=== PATIENT | female | born 1935 | race Caucasian/White ===

== ENCOUNTER → 2024-02-24 14:11 | Outpatient (REF) | payer MEDICARE, BC, SELFPAY | LOC: RAD 14:11 | PROVIDERS: ATTENDING PHYSICIAN Surgery Vascular Surgery; FAMILY PHYSICIAN Internal Medicine | DX: I65.22 Occlusion and stenosis of left carotid artery (principal) | CPT/HCPCS: 93880 ==

== ENCOUNTER → 2024-03-09 11:20 | Outpatient (REF) | payer MEDICARE, BC, SELFPAY ==
[2024-03-09 12:40] LABS: Blood Urea Nitrogen 20 mg/dl (7-17); Calcium 9.9 mg/dl (8.4-10.2); Carbon Dioxide 28 mmol/L (22-30); Chloride 104 mmol/L (98-107); Glucose 92 mg/dl (70-99); Potassium 4.8 mmol/L (3.5-5.1); Sodium 139 mmol/L (135-145); eGFR > 60.00
== END ==
LOC: REG 11:20
PROVIDERS: ATTENDING PHYSICIAN Surgery Vascular Surgery; FAMILY PHYSICIAN Internal Medicine
DX: I65.29 Occlusion and stenosis of unspecified carotid artery (principal)
CPT/HCPCS: 36415; 80048

== ENCOUNTER → 2024-03-17 14:15 | Outpatient (REF) | payer MEDICARE, BC, SELFPAY | LOC: RAD 14:15 | PROVIDERS: ATTENDING PHYSICIAN Surgery Vascular Surgery; FAMILY PHYSICIAN Internal Medicine | DX: I65.29 Occlusion and stenosis of unspecified carotid artery (principal) | CPT/HCPCS: 70496; 70498; Q9967 ==

== ENCOUNTER 2024-05-08 08:59 | Inpatient (IN) | payer MEDICARE, BC, SELFPAY ==
[2024-05-04 10:43] LABS: % Eosinophils 1.8 % (0-6); % Immature Granulocytes 0.4 % (0-0.5); % Lymphocytes 13.4 % (20.5-51.1); % Monocytes 8.6 % (1.7-9.3); % Neutrophils 74.8 % (42.2-75.2); Absolute Basophils 0.1 10^3/uL (0-0.2); Absolute Eosinophils 0.1 10^3/uL (0-0.7); Absolute Lymphocytes 0.9 10^3/uL (1.2-3.4); Absolute Monocytes 0.6 10^3/uL (0.1-0.6); Hematocrit 40.2 % (37.0-47.0); Hemoglobin 12.9 g/dL (12.0-16.0); Mean Corp Hgb Conc. 32.1 g/dL (33.0-37.0); Mean Corpuscular Hgb 28.4 pg (27.0-31.0); Mean Corpuscular Volume 88.5 fL (81.0-99.0); Mean Platelet Volume 9.4 fL (7.4-10.4); Nucleated Red Blood Cells % 0 %; Platelet Count 263 10^3/uL (130-400); Red Blood Cell Count 4.54 10^6/uL (4.20-5.40); Red Cell Dist. Width 13.4 % (11.5-14.5); White Blood Cell Count 6.7 10^3/uL (4.8-10.8)
[2024-05-04 10:50] LABS: APTT 32.2 Sec (23.4-35.0); INR 0.99; PT 12.9 Sec (11.4-14.6)
[2024-05-04 11:23] LABS: Blood Urea Nitrogen 15 mg/dl (7-17); Calcium 9.9 mg/dl (8.4-10.2); Carbon Dioxide 30 mmol/L (22-30); Chloride 102 mmol/L (98-107); Glucose 95 mg/dl (70-99); Potassium 4.7 mmol/L (3.5-5.1); Sodium 140 mmol/L (135-145); eGFR > 60.00
[2024-05-08 09:19] VITALS: BMI 19.2
[2024-05-08 09:20] VITALS: BP 188/77
--- NOTE | 2024-05-08 09:28 | W.SUR.PREOP ---
Pre-Operative Surgical Note
-
I have examined this patient prior to the performance of the scheduled procedure.
The patient's condition is unchanged from the time of the current History and
Physical and the patient is able to undergo the scheduled procedure.
[2024-05-08] MEDS: NSS 500 IV (09:50)
[2024-05-08 09:58] VITALS: BMI 19.2
[2024-05-08] MEDS: BACTROBAN NASAL 1 GRAM NASAL (10:06)
[2024-05-08] MEDS: PERIDEX 0.12% ORAL RINSE 15 ML PO (10:06)
--- NOTE | 2024-05-08 11:18 | PTCARENOTE ---
Dr Gale at pt bedside speaking to pt and pt's sister.
[2024-05-08 12:51] LABS: ACT-LR - POC 261 Seconds (116-155)
[2024-05-08 13:32] LABS: ACT-LR - POC 297 Seconds (116-155)
--- NOTE | 2024-05-08 13:54 | CON.INTV ---
Consultation
Consultation Request
Date/Time Consultation Requested: 05/08/2024 - 1330
Date/Time Consultation Performed: 05/08/2024 - 1351
Requesting Provider: TOÑO Cifuentes
Performing Provider: Alcides Portillo MD
Reason for Consultation: s/p R-CEA
Medical History
-
Chief Complaint: Elective right CEA
History of Present Illness:
89-year-old female non-smoker with a past medical history of bilateral internal carotid artery stenosis, hypertension, vitamin D deficiency and cataracts who presents with elective right CEA. Patient known to vascular surgery service with last
office visit on 04/08/[address] Gale. Patient has known bilateral internal carotid artery stenosis stemming from CTA head/neck from November 2022. Repeat CTA head/neck on 03/17/2024 shows hemodynamically significant right distal common carotid
artery/proximal ICA stenosis with approximately 80-85% narrowing, as well as proximal left ICA stenosis of approximately 50%. Surgical revascularization was discussed at her office visit with Dr. Gale, and the risks and benefits were reviewed in
detail. Patient agreed to procedure. Today she underwent right sided carotid endarterectomy with no complications and was transferred to the ICU for further care. Critical care services consulted for additional management/recommendations.
When I saw the patient she was resting in bed in no acute distress. Heart rate 77, BP via A-line 195/83, BP via NIBP: 171/76. She is saturating 94% on room air. She says she takes lisinopril 5 mg at night. She did take her last dose last night.
She currently denies anxiety, pain, GARCIA, CP, SOB, abdominal pain, nausea, fevers or chills.
PMHx: Bilateral internal carotid artery stenosis, hypertension, vitamin D deficiency, cataracts
PSHx: Sinus surgery, tonsillectomy, cataract surgery, left�CEA (2022)
Past Medical History
Past Medical History: Other (Above as per HPI)
Past Surgical History: Other (Above as per HPI)
Social History
Tobacco: Non-smoker
Alcohol: None
Drug: None
Family History
Family History: Diabetes (This mother + sibling) and Hypertension (Sibling)
Allergies / Home Medications
Allergies
Allergy/AdvReac Type Severity Reaction Status Date / Time
No Known Allergies Allergy Verified 05/08/24 09:20
Home Medications
�Medication �Instructions �Recorded �Confirmed �Last Taken �Type
aspirin 81 mg tablet,delayed 81 mg PO DAILY Blood clot 12/10/22 05/08/24 05/08/24 06:30 History
release prevention/tx
elderberry fruit 50 mg/5 mL oral 50 mg PO DAILY Supplement 12/10/22 04/29/24 12/16/22 07:00 History
syrup
atorvastatin 10 mg tablet (Lipitor) 10 mg PO DAILY 04/29/24 05/08/24 05/07/24 07:00 History
lisinopril 5 mg tablet 5 mg PO HS 04/29/24 05/08/24 05/07/24 20:00 History
Elderberry 575mg/5ml Syrup 1 tsp PO DAILY 05/08/24 05/08/24 3 Weeks Ago History
~04/17/24
cholecalciferol (vitamin D3) 50 50 mcg PO DAILY 05/08/24 05/08/24 05/07/24 07:00 History
mcg (2,000 unit) capsule (Vitamin
D3)
cyanocobalamin (vitamin B-12) 1,000 mcg PO DAILY 05/08/24 05/08/24 05/07/24 07:00 History
1,000 mcg tablet (Vitamin B-12)
Review of Systems
-
History Source: Patient
All other systems: Negative unless noted (12 point ROS performed and is negative unless mentioned above.)
Vitals / Labs / Diagnostic Testing
Vital Signs
Temp Pulse Resp BP Pulse Ox
98.1 F 79 20 188/77 98
05/08/24 09:20 05/08/24 09:20 05/08/24 09:20 05/08/24 09:20 05/08/24 09:20
Microbiology
05/04/24 10:17 Nose MRSA Screen - Final
No Methicillin Resistant Staphylococcus aureus isolated.
Diagnostic Testing:
Physical Exam
-
HEENT: Anicteric and Other (Vertical incision scar seen over right anterior neck)
Cardiovascular: S1/S2 and Peripheral Edema (negative)
Respiratory: Wheeze (negative), Rales (negative), Rhonchi (negative) and Non-Labored Respirations
GI: Soft, Non Distended, Non Tender and Normal Bowel Sounds
Neurology: AO x 3 and Tremors (negative)
Skin: Warm and Dry
General: Respiratory Distress (negative), Comfortable, Fever (negative), Chills (negative) and Sweats (negative)
Assessment
-
Assessment: 89-year-old female non-smoker with a PMHx of bilateral internal carotid artery stenosis, hypertension, vitamin D deficiency and cataracts who presents with elective right CEA. Patient known to vascular surgery service with last office
visit on 04/08/[address] Gale. Patient has known bilateral internal carotid artery stenosis stemming from CTA head/neck from November 2022. Repeat CTA head/neck on 03/17/2024 shows hemodynamically significant right distal common carotid
artery/proximal ICA stenosis with approximately 80-85% narrowing, as well as proximal left ICA stenosis of approximately 50%. Surgical revascularization was discussed at her office visit with Dr. Gale, and the risks and benefits were reviewed in
detail. Patient agreed to procedure. On 05/08/2023 she underwent right sided carotid endarterectomy with no complications and was transferred to the ICU for further care. Critical care services consulted for additional management/recommendations.
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
Impression:
#Right internal carotid artery high-grade stenosis s/p carotid endarterectomy (POD #0)
#Right upper lobe 5 mm groundglass opacity (stable since November 2022)
#Anemia
#Hypertension
Plan:
Postoperative surgical intensive care unit monitoring
Supplemental oxygen as needed to maintain SpO2 >90-94%
prn nebulized bronchodilators
Incentive spirometry encouraged 10x per hour for at least 4 hrs a day
Aspiration precautions
Pain control
Neuro and vascular checks per protocol
Maintain MAP>70-100 --> cardene gtt being started given she is hypertensive with SBP>190
Replete electrolytes with K>4, Mg>2
Maintain euglycemia with goal BG 140-180
Vascular surgery following-correspondence and operative notes reviewed
Transfuse blood products as needed to keep Hb>7g/dL, and plt>50k (given post-operative status)
DVT prophylaxis
Early nutrition
Early mobilization
Recommend continued monitoring of RUL groundglass opacity until stable for 5 years. Considering she recently had CTA head and neck on 03/17/2024, recommend obtaining dedicated CT chest to assess remainder of lung stafford for additional nodules. This
can be done on an outpatient basis. I will arrange for outpatient follow-up with me.
Critical care statement: A total of 44 minutes of critical care time was provided for this patient today. This includes management of unstable vital signs, evaluation of the patient at bedside, reviewing the patient's pertinent medical records
including radiographs, microbiology, laboratory evaluations, and discussion with primary team, consultants, pharmacy, nutrition, physical therapy, case management, charge nurse, critical care nursing, and respiratory therapy.
[2024-05-08 14:20] VITALS: BP 134/67; BP 188/77
--- NOTE | 2024-05-08 14:27 | W.SUR.POST ---
Surgical Immediate Post Op
Note
Pre Op Diagnosis: Carotid Stenosis
Post Op Diagnosis: Carotid Stenosis
Procedure Performed: RIGHT Carotid Endarterectomy
Primary Surgeon: Erik Gale MD
Secondary Surgeons: Tonio Green MD, PhD
Anesthesia: Per Anesthesia
Estimated Blood Loss: 20 cc
Fluids: Per Anesthesia
Drains/Shunts: None
Specimens/Cultures: None
Doppler/Duplex/Angio (Y/N): None
Complications: None
Operative Findings: Right carotid cutdown, endarterectomy with extensive hard and soft plaque, patch repair, closure. Neuro intact post-procedure.
--- NOTE | 2024-05-08 14:29 | OR.RPT ---
Operative Report
Operative Report
Date of Operation: 05/08/2024
Pre Op Diagnosis: High-grade stenosis of the right internal carotid artery, asymptomatic
Post Op Diagnosis: High-grade stenosis of the right internal carotid artery, asymptomatic
Procedure: RIGHT carotid endarterectomy with patch angioplasty using bovine pericardium
Surgeon: Erik Gale III, MD
Towel Distributor: Tonio Green MD PhD PGY-6
Anesthesia: General
Complications: None
History and Indications for Procedure: 89-year-old female with asymptomatic high-grade right carotid artery stenosis
Procedure in Detail: Blanca Rodriguez was correctly identified and placed supine on the operating table. After adequate induction of anesthesia the right neck was positioned, prepped and draped in the usual sterile fashion. Preoperative antibiotics were
administered. A timeout procedure was performed with the nursing and anesthesia staff confirming the patients identity as well as the nature and laterality of the procedure.
The carotid bifurcation was marked with ultrasound at the beginning of the case. The incision was planned accordingly. An incision was made along the anterior border of the right sternocleidomastoid muscle. Electrocautery was used to divide the
subcutaneous tissue and platysma. The carotid sheath was entered with sharp dissection. The internal jugular vein was retracted laterally. The vagus nerve was identified and protected throughout the case. The common carotid artery was identified at
the base of this incision and carefully encircled with a vessel loop. The patient was systemically heparinized. The dissection was continued distally towards the carotid bifurcation. The facial vein was skeletonized, ligated and divided between ties
and clips. The proximal external carotid artery was encircled with a vessel loop. The distal internal carotid artery was encircled with a vessel loop at a soft spot on the artery beyond the plaque. The hypoglossal nerve was identified and protected.
The internal vessel loop was secured followed by the common and external. An arteriotomy was made on the distal common carotid artery with an 11-blade. This was extended proximally and distally with Dick scissors. The arteriotomy was extended
distally through the plaque to an area of normal appearing internal carotid artery. The distal vessel loop was replaced with a short tip hockey-stick type vascular clamp. An endarterectomy was performed with a [place] elevator in the standard
fashion. The proximal extent of the plaque was transected with scissors. The distal end of the plaque in the internal carotid artery feathered very nicely with no distal intimal flap identified. The plaque extending into the external carotid artery
was everted. Once the plaque was fully removed the endarterectomy plane was irrigated with heparinized saline and any loose fronds of tissue were removed. A pre-cut piece of bovine pericardium was sewn in place using a running 6-0 Prolene suture.
Prior to the completion of the patch the common carotid was allowed to forward bleed and the external was allowed to back bleed. The area under the patch was irrigated with heparinized saline to remove any potential thrombus or debris. The
anastomosis was completed.
The external vessel loop was released first, followed by the common and then the internal. There was an excellent pulse in the distal internal carotid artery. An excellent quality Doppler signal in the distal internal carotid artery was also
confirmed. The patch suture line was closely inspected for hemostasis and was achieved. Protamine was administered. Hemostasis was achieved in the wound bed. The wound was irrigated with saline solution.
The wound was then closed in layers. Sterile dressings were applied. The patient awoke from anesthesia with no immediate neuro deficits and was taken to the PACU in stable condition.
Attestation: I was present and responsible for the entire procedure
Signed:
Erik Gale III, MD
[facility] V[facility] Surgery
[phone] (cell)
[2024-05-08 14:30] VITALS: BP 142/63
[2024-05-08 14:35] VITALS: BP 139/59
[2024-05-08] MEDS: NSS 1000 IV (14:46)
[2024-05-08 14:53] LABS: Hematocrit 32.9 % (37.0-47.0); Hemoglobin 10.9 g/dL (12.0-16.0); Mean Corp Hgb Conc. 33.1 g/dL (33.0-37.0); Mean Corpuscular Hgb 29.4 pg (27.0-31.0); Mean Corpuscular Volume 88.7 fL (81.0-99.0); Red Blood Cell Count 3.71 10^6/uL (4.20-5.40); Red Cell Dist. Width 13.1 % (11.5-14.5); White Blood Cell Count 6.9 10^3/uL (4.8-10.8)
[2024-05-08 14:57] LABS: Blood Urea Nitrogen 19 mg/dl (7-17); Calcium 8.4 mg/dl (8.4-10.2); Carbon Dioxide 26 mmol/L (22-30); Chloride 108 mmol/L (98-107); Estimated Creatinine Clearance 52 ml/min; Glucose 104 mg/dl (70-99); Potassium 4.5 mmol/L (3.5-5.1); Sodium 141 mmol/L (135-145); eGFR > 60.00
[2024-05-08 15:00] VITALS: BP 138/60
[2024-05-08 15:32] LABS: Mean Platelet Volume 9.7 fL (7.4-10.4); Platelet Count 209 10^3/uL (130-400)
--- NOTE | 2024-05-08 15:38 | TRANSFER ---
Patient transferred to ICU, phone and bedside report to Laurie. Patient awake and alert, VSS. Neuro checks wnl on arrival to ICU. Arian Robert RN BSN.
[2024-05-08 15:42] VITALS: BMI 19.0
[2024-05-08] MEDS: CARDENE 200 IV (15:52)
[2024-05-08] MEDS: ROXICODONE 5 MG PO (16:24)
--- NOTE | 2024-05-08 16:40 | PTCARENOTE ---
Pt admitted to ICU bed 3362 from PACU at 1530. Pt AAOx3. Neuro checks WNL. PERRL. Right neck incision C/D/I. BP elevated on arrival. SBP 170s-190 via right radial a-line. Nicardipine started per protocol. PRN Oxycodone give x 1 for right
neck pain.
--- NOTE | 2024-05-08 19:50 | PTCARENOTE ---
Pt Aox3, VERA, pupils equal and reactive, VSS, NSR on monitor, [place] in place. no edema. C/o tenderness at right surgical site, declined pain medication at this time. Right neck incision is ecchymotic, edges approx with surgical glue, soft, and
tender. NS @80ml/hr infusing per order. Bedrest until AM, [place] in place. Pt offers no complaints at this time, will continue with plan of care.
[2024-05-08] MEDS: HEPARIN 5000 UNITS SC (20:00)
[2024-05-08] MEDS: ZESTRIL 5 MG PO (22:36)
[2024-05-09] VITALS (8 sets, daily range): BP systolic 119–180; BP diastolic 64–79; BMI 19.3
--- NOTE | 2024-05-09 | PTCARENOTE ---
Pt assessment unchanged, VSS, NSR on monitor with PVCs. Right neck incision remains CDI. Normal Saline infusing at 80ml/hr.
[2024-05-09] MEDS: NSS 1000 IV (02:27)
[2024-05-09 05:00] LABS: Blood Urea Nitrogen 16 mg/dl (7-17); Carbon Dioxide 22 mmol/L (22-30); Chloride 109 mmol/L (98-107); Estimated Creatinine Clearance 52 ml/min; Glucose 105 mg/dl (70-99); Magnesium 2.1 mg/dl (1.6-2.3); Potassium 4.7 mmol/L (3.5-5.1); Sodium 140 mmol/L (135-145); eGFR > 60.00
[2024-05-09 05:02] LABS: INR 1.11; PT 14.1 Sec (11.4-14.6)
[2024-05-09 05:03] LABS: Hemoglobin 11.5 g/dL (12.0-16.0); Mean Corp Hgb Conc. 33.8 g/dL (33.0-37.0); Mean Corpuscular Volume 85.6 fL (81.0-99.0); Mean Platelet Volume 9.9 fL (7.4-10.4); Platelet Count 253 10^3/uL (130-400); Red Blood Cell Count 3.97 10^6/uL (4.20-5.40); Red Cell Dist. Width 13.2 % (11.5-14.5); White Blood Cell Count 10.3 10^3/uL (4.8-10.8)
[2024-05-09 05:13] LABS: APTT 31.6 Sec (23.4-35.0)
--- NOTE | 2024-05-09 06:13 | PTCARENOTE ---
Systolic BP >200 on Sharon, pt denied pain, Cardene gtt restarted at 2.5mg. Pt then C/o pressure in bladder, upon bladder scan she was retaining 720ml, straight cath for 900ml. Surgical incision remains intact, soft, with local ecchymosis.
--- NOTE | 2024-05-09 07:43 | W.PN.VS ---
Today's Communication / Plan
-
wean cardene and if bp stable hopeful for discharge
Assessment/Plan
-
s/p cea
- wean cardene
d/c mary
ambulate
homeful for discharge later today
Subjective Data
-
Date of Service: May 09, 2024
doing well
no complaints
no pain
Objective Data
-
Vital Signs
Temp Pulse Resp BP Pulse Ox
97.8 F 75 12 180/79 97
05/09/24 04:30 05/09/24 06:45 05/09/24 06:45 05/09/24 04:12 05/09/24 06:45
Intake and Output
05/08/24 05/09/24 05/10/24
06:59 06:59 06:59
Intake Total 1376.5 / 1469.0 92.5 / 92.5
Output Total 1500 / 1500
Balance -123.5 / -31.0 92.5 / 92.5
Intake:
Oral fluids
IV fluids (Total) 1367.5 / 1460.0 92.5 / 92.5
Cardene 37.5 / 50.0 12.5 / 12.5
NS 1225 / 1305 80 / 80
Nss 1,000 ml @ 80 mls/hr IV . 105 / 105
[id number] MIGUELINA Rx#:[id number]
Output:
Urine, Voided 600 / 600
Straight cath output 900 / 900
Lab Results
05/09/24 04:09
05/09/24 04:09
Calcium 9.0 mg/dl (8.4-10.2) 05/09/24 04:09
Magnesium 2.1 mg/dl (1.6-2.3) 05/09/24 04:09
Physical Exam
-
rrr
ctab
inc c/d/i
no hematoma
neuro intact
equal strength bilat upper and lower extremities
[2024-05-09] MEDS: ASPIR LOW (ENTERIC COATED) 81 MG PO (08:10)
[2024-05-09] MEDS: VITAMIN D3 (cholecalciferol) 50 MCG PO (08:10)
[2024-05-09] MEDS: HEPARIN 5000 UNITS SC (08:10)
[2024-05-09] MEDS: LIPITOR 10 MG PO (08:10)
[2024-05-09] MEDS: VITAMIN B-12 1000 MCG PO (08:10)
--- NOTE | 2024-05-09 08:50 | W.PN.INTV ---
Today's Communication / Plan
Recommendations
Pain control
Up OOB as tolerated
Outpatient follow-up recommended with vascular surgery
Outpatient follow-up with me regarding her RUL GGO � I personally discussed this with the patient prior to her being discharged home.
Patient being prepared for discharge home. Drink Mixer/Pulmonary service will now sign off. Please reconsult if there are any additional questions/concerns, or if patient's respiratory status deteriorates.
Assessment
-
Assessment: 89-year-old female non-smoker with a PMHx of bilateral internal carotid artery stenosis, hypertension, vitamin D deficiency and cataracts who presents with elective right CEA. Patient known to vascular surgery service with last office
visit on 04/08/[address] Gale. Patient has known bilateral internal carotid artery stenosis stemming from CTA head/neck from November 2022. Repeat CTA head/neck on 03/17/2024 shows hemodynamically significant right distal common carotid
artery/proximal ICA stenosis with approximately 80-85% narrowing, as well as proximal left ICA stenosis of approximately 50%. Surgical revascularization was discussed at her office visit with Dr. Gale, and the risks and benefits were reviewed in
detail. Patient agreed to procedure. On 05/08/2023 she underwent right sided carotid endarterectomy with no complications and was transferred to the ICU for further care. Critical care services consulted for additional management/recommendations.
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
Impression:
#Right internal carotid artery high-grade stenosis s/p carotid endarterectomy (POD #1)
#Right upper lobe 5 mm groundglass opacity (stable since November 2022)
#Anemia
#Hypertension
Plan:
Postoperative surgical intensive care unit monitoring
Maintain SpO2 >90-94%
prn nebulized bronchodilators
Incentive spirometry encouraged 10x per hour for at least 4 hrs a day
Aspiration precautions
Pain control
Neuro and vascular checks per protocol
Maintain MAP>70-100 - now off cardene gtt
Replete electrolytes with K>4, Mg>2
Maintain euglycemia with goal BG 140-180
Vascular surgery following-correspondence and operative notes reviewed
Transfuse blood products as needed to keep Hb>7g/dL, and plt>50k (given post-operative status)
DVT prophylaxis
Early nutrition
Early mobilization
Recommend continued monitoring of RUL groundglass opacity until stable for 5 years. Considering she recently had CTA head and neck on 03/17/2024, recommend obtaining dedicated CT chest to assess remainder of lung stafford for additional nodules. This
can be done on an outpatient basis. I will arrange for outpatient follow-up with me.
Patient being prepared for discharge home. Drink Mixer/Pulmonary service will now sign off. Thank you for allowing us to be involved in the care of this patient. Please reconsult if there are any additional questions/concerns, or if patient's
respiratory status deteriorates.
Total time spent today was 40 minutes for this encounter. Time includes reviewing laboratory test/imaging results, reviewing pertinent medical records, obtaining and reviewing medical history, performing an appropriate exam, ordering medications,
tests and procedures. Time also includes documentation of this encounter, coordinating patient care and communicating with other healthcare professionals. Total time does not include separately billed tests performed on this date of service.
Subjective Dataa
Subjective Data
Date of Service:
Date of Service: May 09, 2024
Chief Complaint: Drink Mixer Follow Up
Subjective:
Seen and evaluated today at bedside. Slight discomfort over the right side of the neck, otherwise no SOB, CP, GARCIA, abdominal pain, fevers or chills. Currently saturating 96% on room air, BP 167/74, heart rate 92.
Review of Systems
General: Other (Negative unless mentioned above)
Objective Data
Data Reviewed
Vital Signs / I&O / Oxygen:
Vital Signs
Temp Pulse Resp BP Pulse Ox
97.8 F 96 23 137/71 97
05/09/24 04:30 05/09/24 10:30 05/09/24 10:30 05/09/24 10:00 05/09/24 09:17
Intake and Output
05/08/24 05/09/24 05/10/24
06:59 06:59 06:59
Intake Total 1376.5 / 1469.0 185.0 / 185.0
Output Total 1500 / 1500
Balance -123.5 / -31.0 185.0 / 185.0
SaO2 97
Physical Exam
General: Respiratory Distress (negative) and Comfortable
HEENT: Anicteric and Other (Vertical incision scar seen over right anterior neck)
Cardiovascular: S1-S2 and Peripheral Edema (negative)
Respiratory: Wheeze (negative), Crackles (negative), Rhonchi (negative) and Non-Labored Respirations
GI: Soft, Non Distended, Non Tender and Normal Bowel Sounds
Neurology: AO x 3 and Tremors (negative)
Skin: Warm, Dry and Jaundice (negative)
Labs/Micro/Reports
Lab Data
05/09/24 04:09
05/09/24 04:09
Laboratory Results
05/09/24
04:09
PT 14.1
INR 1.11
APTT 31.6
--- NOTE | 2024-05-09 10:42 | PTCARENOTE ---
Neuro checks WNL. A line d/c'd. BP stable off Cardene gtt. Pt OOB in chair. Steady gait. Self care in the bathroom. Incision C/D/I.
--- NOTE | 2024-05-09 11:34 | CM ---
CM reviewed medical records. CM met with patient in room. Patient lives independently with her friend.. Patient does not have a history of VN, SNF or DME. Patient is active with her PCP. Patient confirmed medication coverage.
PLAN: Home no needs.
--- NOTE | 2024-05-09 13:37 | PTCARENOTE ---
Cardene off at 0815. Last BP 158/75. Neuro checks WNL. Tolerating diet. Ambulating with steady gait. - Dr Jennings notified. Pt okayed for discharge.
--- NOTE | 2024-05-09 15:46 | PTCARENOTE ---
Pt discharged to home with family. IV and grinder hand d/c'd. Reviewed all discharge instruction, including f/u visits, meds and when to call MD.
== END 2024-05-09 15:27 | disposition home or self-care (01) | DRG 39 ==
LOC: ICU 08:59
PROVIDERS: Nurse Practitioner; ADMITTING PHYSICIAN Surgery Vascular Surgery; CONSULT PHYSICIAN Internal Medicine Critical Care Medicine; FAMILY PHYSICIAN Internal Medicine
PROC: 03UK0KZ Supplement Right Internal Carotid Artery with Nonautologous Tissue Substitute, Open Approach (ICD-10-PCS; 2024-05-08)
PROC: 03CK0ZZ Extirpation of Matter from Right Internal Carotid Artery, Open Approach (ICD-10-PCS; 2024-05-08)
DX: I65.21 Occlusion and stenosis of right carotid artery (principal); I10 Essential (primary) hypertension; D64.9 Anemia, unspecified; E55.9 Vitamin D deficiency, unspecified; R91.8 Other nonspecific abnormal finding of lung field; Z79.82 Long term (current) use of aspirin; Z79.899 Other long term (current) drug therapy; Z98.62 Peripheral vascular angioplasty status; Z82.49 Family history of ischemic heart disease and other diseases of the circulatory system
CPT/HCPCS: 88304; 88311; 35301; 36415; 71046; 80048; 83735; 85025; 85027; 85610; 85730; 86850; 86900; 86901; 87070; 95938; 95941; 95955

== ENCOUNTER → 2024-06-16 09:33 | Outpatient (REF) | payer MEDICARE, BC, SELFPAY ==
[2024-06-16 13:09] LABS: HDL Cholesterol 97 mg/dl; LDL Cholesterol, Calculated 90 mg/dl; Total Cholesterol 201 mg/dl (50-199); Triglyceride 70 mg/dl (10-149); Very Low Density Lipoprotein 14 mg/dl (0-30)
== END ==
LOC: REG 09:33
PROVIDERS: ATTENDING PHYSICIAN Internal Medicine Cardiovascular Disease; FAMILY PHYSICIAN Internal Medicine
DX: E78.2 Mixed hyperlipidemia (principal)
CPT/HCPCS: 36415; 80061

== ENCOUNTER → 2024-06-24 11:25 | Outpatient (REF) | payer MEDICARE, BC, SELFPAY | LOC: DHVS 11:25 | PROVIDERS: ATTENDING PHYSICIAN Registered Nurse; FAMILY PHYSICIAN Internal Medicine | DX: I65.29 Occlusion and stenosis of unspecified carotid artery (principal); I65.21 Occlusion and stenosis of right carotid artery | CPT/HCPCS: 93880 ==

== ENCOUNTER → 2024-08-26 13:14 | Outpatient (REF) | payer MEDICARE, BC, SELFPAY | LOC: RAD 13:14 | PROVIDERS: ATTENDING PHYSICIAN Internal Medicine Critical Care Medicine; FAMILY PHYSICIAN Internal Medicine | DX: R91.8 Other nonspecific abnormal finding of lung field (principal) | CPT/HCPCS: 71250 ==